=== PATIENT | male | born 1980 | race Caucasian/White ===

== ENCOUNTER 2017-06-24 08:11 | Day surgery (SDC) | payer BC ==
[~2017-06-24] VITALS: Ht 162.6 cm; Wt 63.0 kg
[2017-06-24] VITALS (10 sets, daily range): BP systolic 119–151; BP diastolic 63–81; PULSE 62–84; RESP 12–18; Ht 162.6 cm; Wt 63.0 kg
[~2017-06-24 08:11] MED LIST: BUPIVACAINE 0.25% (MPF) 30 ML INJ ONE; CEFAZOLIN 1 GM INJ ONE; CEFAZOLIN 2 GM/50 ML (PMX) 50 ML IVPB SCH; SOD CHLORIDE 0.9% 1,000 ML IV SCH; [UNRECOGNIZED DRUG - CODE] PO
[2017-06-24] MEDS ORDERED: CETI10CA PO (08:35)
[2017-06-24] MEDS ORDERED: ATOR10TA65 PO (08:36)
[2017-06-24] MEDS ORDERED: IBUP-1542 PO (08:36)
[2017-06-24] MEDS ORDERED: AMLO5TAB4 PO (08:37)
[2017-06-24] MEDS ORDERED: MELO-216 PO (08:37)
[2017-06-24] MEDS ORDERED: OMEP40CA6 PO (08:37)
[2017-06-24] MEDS ORDERED: GABA400C14 PO (08:38)
[2017-06-24] MEDS ORDERED: BUSP10TA2 PO (08:38)
[2017-06-24] MEDS ORDERED: TRAM-40 PO (08:39)
[2017-06-24] MEDS ORDERED: CYCL-319 PO ×2 (08:39)
[2017-06-24] MEDS ORDERED: PROCHLORPERAZINE 10 MG INJ IV PRN (09:30)
[2017-06-24] MEDS ORDERED: HYDROmorphONE (0.2 MG/ML) 10ML SYG IV PRN ×3 (09:30)
[2017-06-24] MEDS ORDERED: MEPERIDINE 25 MG INJ IV PRN (09:30)
[2017-06-24] MEDS ORDERED: FENTAnyl 50 MCG/ML VIAL IV PRN ×3 (09:30)
[2017-06-24] MEDS ORDERED: DIPHENHYDRAMINE 50 MG INJ IV PRN (09:30)
[2017-06-24] MEDS ORDERED: ONDANSETRON 4 MG INJ IV PRN (09:30)
[2017-06-24] MEDS ORDERED: OXYCODONE/ACETAMINOPHEN (5/325) TAB PO PRN (09:30)
[2017-06-24] MEDS ORDERED: LIDOCAINE 2% (SDV) 5 ML INJ ONE (09:43)
[2017-06-24] MEDS ORDERED: MIDAZOLAM 1 MG/ML 2 ML INJ ONE (09:43)
[2017-06-24] MEDS ORDERED: FENTAnyl 50 MCG/ML VIAL ONE (09:43)
[2017-06-24] MEDS ORDERED: PROPOFOL 20 ML ONE ×2 (09:43→09:56)
[2017-06-24] MEDS ORDERED: SUCCINYLCHOLINE CHLORIDE 100 MG/5 ML SYG IV ONE (09:56)
[2017-06-24] MEDS ORDERED: ROCURONIUM 50 MG INJ ONE (09:56)
[2017-06-24] MEDS ORDERED: ONDANSETRON 4 MG INJ ONE (09:58)
[2017-06-24] MEDS ORDERED: FAMOTIDINE 20 MG INJ ONE (09:58)
[2017-06-24] MEDS ORDERED: DEXAMETHASONE 4 MG/ML 1 ML INJ ONE (09:58)
[2017-06-24] MEDS ORDERED: HYDROmorphONE 2 MG/ML SYG ONE (09:58)
[2017-06-24] MEDS ORDERED: BUPIVACAINE 0.25% (MPF) 30 ML INJ INJ ONE (10:05)
[2017-06-24] MEDS ORDERED: POLYMYXIN/BACITRACIN 1L IRRIG IRR ONE (10:05)
[2017-06-24] MEDS ORDERED: SUGAMMADEX SODIUM 200 MG/2 ML VIAL IV ONE (10:27)
[2017-06-24] MEDS ORDERED: POLYMYXIN/BACITRACIN 1L IRRIG ONE (10:40)
--- NOTE | 2017-06-24 10:44 | OPR ---
Date/Time of Note Date/Time of Note DATE: 06/24/17 TIME: 10:40 Operative Report Procedure Date: Jun 24, 2017 Preoperative Diagnosis right inguinal hernia Postoperative Diagnosis incarcerated right inguinal hernia Operation/Procedure Performed 1. open incarcerated right inguinal hernia repair with medium ultrapro hernia system mesh 2. therapeutic injection of subcutaneous local anesthesia Surgeon see signature line Fire Control Assistant none Anesthesia Type: general Estimated Blood Loss: 0 - 10 ml's Transfusion none Specimen none Grafts/Implants none Complications none Pt Condition Post Procedure: stable Indications This is a 29-year-old male with a right inguinal hernia. He requests surgical repair. Risks alternatives benefits and percent were discussed the patient. Patient expressed understanding consents to the operation. Procedure Description Patient taken to the OR and prepped and draped in usual sterile fashion. Surgical timeout was performed. IV antibiotics were given. Right inguinal oblique incision is made with a 10 blade. Dissection Carrs carried onto the extremity fascia. External the fascia is open with the 15 blade. This incision is extended medially inferiorly lateral superiorly with Metzenbaum scissors. Cord structures were identified and encircled with a Rebekah drain. Indirect hernia sac is identified suture ligated with 0 Vicryl suture and manually reduced. This area is also affixed to the distal portion of the ultrapure hernia system mesh and secured in place with a running 0 Prolene from the pubic tubercle along the shelving of the inguinal ligament. Superiorly the disc mesh is secured to the intra-oblique with interrupted 3-0 Vicryl. Onlay mesh was secured in a similar fashion with a running 0 Prolene from the pubic tubercle along the shelving edge of the inguinal ligament. Structure creating reapproximated around the cord structures to re-create the inguinal ring with interrupted 0 Prolene. The onlay mesh was secured to intra-bleed with interrupted 3-0 Vicryl. Externally fascia was closed with running 3-0 Vicryl. Frandy's fascia was closed with interrupted 0 Vicryl. Skin is closed and skin mary ann. There appears to contains local anesthesia injected throughout the incision site. Dry dressings were applied. Mike GARCÍA Jun 24, 2017 10:44
[2017-06-24] MEDS ORDERED: HYDROCODONE/APAP (5/325) TAB PO ONE (11:00)
== END 2017-06-24 12:32 | disposition home or self-care (01) ==
LOC: SDS 08:11
PROVIDERS: ATTEND Surgery
DX: K40.30 Unilateral inguinal hernia, with obstruction, without gangrene, not specified as recurrent (principal)
CPT/HCPCS: 49507; C1781; J0690; J1100; J1170; J2250; J2405; J3010; Z7512; Z7610